=== PATIENT | male | born 1975 | race Caucasian/White ===

== ENCOUNTER → 2018-05-24 10:30 | Outpatient (CLI) | payer OTHER, SELFPAY ==
[2018-05-24 14:07] LABS: Alanine Aminotransferase 27 U/L (12-78); Albumin Level 3.5 gm/dL (3.4-5.0); Albumin/Globulin Ratio 0.9 (1.1-1.8); Alkaline Phosphatase 91 U/L (46-116); Anion Gap 9.8 mEq/L (5-15); Aspartate Amino Transferase 15 U/L (15-37); Bilirubin,Total 0.2 mg/dL (0.2-1.0); Blood Urea Nitrogen 12 mg/dL (7-18); Carbon Dioxide 29 mmol/L (21.0-32.0); Chloride 105 mmol/L (98-107); Chol/HDL Ratio 4.9 (1-3.5); Cholesterol 152 mg/dL (140-200); Creatinine,Serum 0.95 mg/dL (0.70-1.30); Estimated Glomerular Filt Rate 86 ml/min (>60); GFR (African American) 104 ML/MIN (>60); Globulin 3.8 gm/dl (1.3-3.2); Glucose 128 mg/dL (74-106); HDL Cholesterol 31 mg/dL (27-67); LDL Cholesterol 79 mg/dL (0-130); Potassium 3.8 mmoL/L (3.5-5.1); Sodium 140 mmol/L (136-145); T4 (Thyroxine) 8.5 ug/dl (4.7-13.3); Thyroid Stimulating Hormone 1.76 uIU/ml (0.358-3.740); Total Protein,Serum 7.3 gm/dL (6.4-8.2); Triglycerides 210 mg/dL (30-200); VLDL Cholesterol 42 mg/dL (0-40)
[2018-05-24 14:38] LABS: Basophils % 0.6 % (0.1-2.0); Eosinophils # 0.2 K/mm3 (0.0-0.4); Eosinophils % 2.4 % (0.1-12.0); Hematocrit 49.6 % (42.0-52.0); Lymphocytes # 2.3 K/mm3 (0.7-4.5); Lymphocytes % 32.9 K/mm3 (10-50); Mean Corpuscular HGB Conc 32.2 g/dL (31.8-35.4); Mean Corpuscular Hemoglobin 30.7 pg (27.0-31.2); Mean Corpuscular Volume 95.4 fl (80-94); Monocytes # 0.5 K/mm3 (0.1-1.0); Monocytes % 6.9 % (1.7-9.3); Neutrophils % 57.2 % (37.0-80.0); Platelet Count 240 K/mm3 (142-424); Red Cell Distribution Width 13.7 % (11.5-17.5)
[2018-05-27 06:15] LABS: PSA, Free 0.19 ng/mL; Prostate Specific Ag 0.7 ng/mL (0.0-4.0); Vitamin D 25 Hydroxy 31.1 ng/mL (30.0-100.0)
== END ==
PROVIDERS: Visit Provider Nurse Practitioner Family
DX: R05 Cough (principal); R53.83 Other fatigue; Z76.89 Persons encountering health services in other specified circumstances
CPT/HCPCS: 80053; 80061; 82652; 84153; 84154; 84436; 84443; 85025

== ENCOUNTER 2018-09-30 09:40 | Outpatient (RCR) | payer SELFPAY | END 2018-11-06 08:52 | disposition home or self-care (01) | LOC: PT 09:40 | DX: I21.3 ST elevation (STEMI) myocardial infarction of unspecified site (principal) | CPT/HCPCS: 93798 ==

== ENCOUNTER → 2020-11-22 10:50 | Outpatient (CLI) | payer OTHER, SELFPAY ==
--- NOTE | 2020-11-22 10:51 | CA_ITS ---
APPROVED REPORT EXAM: Comprehensive 2D, Doppler, and color-flow Echocardiogram [employer] Travel Counselor: Carolyn Hancock CRT Ht: 6 ft 0 in Wt: 197lbs BSA: 2.12 BP: 132/62 mmHg Indications: Hyperlipidemia, CAD, Stent 2D Dimensions LVOT 2.10 cm (M/F) 1.5-2.5 LVEF (Hope's) 68.00 % LV Volume 81.00 mL LA Volume 29.00 mL LA Volume Index 13.70 mL/m2 (M/F) 16-34 M-Mode Dimensions RVDd 2.30 cm (0.9-2.6) LA Diam 3.10 cm (1.9-4.0) LVDd 5.30 cm (3.5-5.7) Ao Diam 4.30 cm (2.0-3.7) LVDs 3.60 cm (3.5-5.7) AV Cusp 2.10 cm (1.5-2.6) IVSd 1.20 cm (0.6-1.1) PWd 0.80 cm (0.6-1.1) EF (Teich) 59.70% FS 32.10% EDV (Teich) 135.00 mL ESV (Teich) 54.40 mL LV Diastology E/A Ratio 0.70 MED E' 7.80 (< 7 cm/sec) MED A' 8.38 cm/s E'/MED E' Ratio 7.80 (>14) LAT E' 17.00 (<10 cm/sec) LAT A' 12.50 cm/s E/LAT E' Ratio 3.60 (>14) Aortic Valve AoV Peak Lee. 122.00 (50-130 cm/s) AO Peak GR. 6.00 mmHg Mitral Valve MV E Max Lee. 60.70 (40-130 cm/s) MV A Velocity 84.40 (40-130 cm/s) E/A Ratio 0.70 Pulmonary Valve VA End VMAX 69.00 cm/s PA Accel Time 141.00 (>120 msec) Tricuspid Valve TR P. Velocity 188.00 cm/s RAP Estimate 10.00 mmHg RVSP 24.00 mmHg Left Ventricle Left atrium normal size, left ventricle is normal size, there is no concentric left ventricular hypertrophy, visually estimated ejection fraction 55% with no regional wall motion abnormality, diastolic parameters are within normal range. Right Ventricle Right atrium and right ventricle are normal size and contractility. Aortic Valve Aortic valve is minimally thickened and fibrosed, there is no aortic stenosis or aortic insufficiency. Mitral Valve Mitral valve grossly normal, there is trace mitral regurgitation. Tricuspid Valve Tricuspid grossly normal, there is trace tricuspid regurgitation, tricuspid regurgitation jet velocity is inadequate for calculation of the right ventricular systolic pressure. Pulmonic Valve Pulmonic valve is poorly visualized. Great Vessels Aortic root is normal size. Pericardium No significant pericardial effusion noted. Conclusion 1. Normal left ventricular size, preserved left ventricular systolic function, visually estimated ejection fraction 55% with no regional wall motion abnormality, diastolic parameters are within normal range. 2. Trace mitral and tricuspid regurgitation. 3. No significant pericardial effusion noted. Electronically signed by : Franklin Gannon, 11/22/2020 21:55:35
--- NOTE | 2020-11-22 11:38 | NM_ITS ---
APPROVED REPORT Exam: Nuclear Stress Test Indication: CAD, Hx of CT, HTN, High cholesterol, Tobacco use, Family history Patient Location: Outpatient Stress Tech: Pau Apple [place] Tech:Юлия Smith, ARRT, RT (R)(N) Ht: 6 ft 0 in Wt: 197 lbs HR: 72 bpm BP: 156/89 mmHg BSA: 2.12 m2 History: CAD, Hx of CT, HTN, High cholesterol, Tobacco use, Family history Procedure: Patient exercised on Varinder protocol 7:07 minutes and sec, resting heart rate 72 bpm, resting blood pressure 156/89 mmHg, with exercise maximum heart rate achived was 152 bpm which is 88 % of the maximum predicted heart rate and blood pressure was 183/91 mmHg. Test was stopped due to SOA and elevated BP. Patient denied any complaint of chest pain. Patient has Good exercise capacity, achieved 10.1 METs of workload on treadmill, the blood pressure response to exercise was Adequate. Electrocardiogram Resting electrocardiogram showed sinus rhythm, with exercise there is less than 1.[address] segment depression noted from the baseline EKG. The EKG portion of the exercise Myoview is negative for ischemia. Cardiac Stress and Resting SPECT Images: Cardiac Stress and Resting SPECT images were obtained using technetium 99m Myoview 31.8 mCi stress and 9.97 mCi at rest. Gated SPECT for analysis of segmental wall motion and calculation of the ejection fraction also done. Prone images were also obtained. Cardiac stress and resting SPECT images show uniform myocardial activity without segmental perfusion abnormality, computer derived ejection fraction is 50% with no regional wall motion abnormality, right ventricle is normal size and contractility. Conclusion: 1. The EKG portion of the exercise Myoview is negative for ischemia, patient has good exercise capacity achieved 10.1 METs of workload on treadmill, the blood pressure response to exercise was adequate, there was no exercise-induced chest discomfort. 2. No scintigraphic evidence of reversible ischemia seen, computer derived ejection fraction is 50% with no regional wall motion abnormality, right ventricle is normal size and contractility. 3. Normal exercise Myoview study. Electronically signed by : Franklin Gannon, 11/22/2020 22:16:47
--- NOTE | 2020-11-22 13:01 | HMH.ITSHM ---
Current Home Medications as stated by this patient João Louise or volunteer patient representative. []OMEPRAZOLE CLOPIDOGREL BUPROPION ATORVASTATIN ASA
--- NOTE | 2020-11-22 13:20 | CA_ITS ---
APPROVED REPORT Exam: Exercise Treadmill Technologist: Pau Apple, Ht: 6 ft 0 in Wt: 197 lbs BSA: 2.12 m2 HR: 72 bpm BP: 156/89 mmHg Medical History Medications: Aspirin,,,,, Atorvastatin,,,,, BuPROPION,,,,, OmPEprazole,,,,, Stress Test Details Test: Varinder HR Resting HR: 81 bpm Max Heart Rate (APMHR): 173.404810 bpm Max HR Achieved: 152 bpm Target HR (85% APMHR): 147.881190 bpm % of APMHR: 87.86 Recovery HR: 99 bpm BP Resting BP: 156/89 mmHg Max BP: 183/91 mmHg Recovery BP: 151.0/92.0 mmHg ECG Resting ECG: Sinus Rhythm Clinical Exercise duration: 07:07 min Highest Stage Achieved: Exercise capacity: 10.1 METs Stress ECG Conclusion Varinder protocol completed. Met's: 10.1 Exercised 07:07 Max BP: 183/91 Max HR: 152 bpm Stopped due to Shortness of breath and elevated BP. Max HR: 152 bpm % of PM: 88% Max BP: 183/91 MET's 10.1 Test stopped Due To: Shortness of breath/elevated BP, resolved in recovery. Symptoms: No CP, +SOB during peak exercise. Arrythmias/Ectopy: No ectopy. ST-T Changes: less than 1.5mm ST depression. Conclusion: Images to follow Test Summary REST 03:14 0.0 0.0 81 . 156/ 89 . . Stage 1 01:00 10.0 1.7 102 . . . . Stage 1 02:00 10.0 1.7 110 . . . . Stage 1 03:00 10.0 1.7 117 . 160/108 . . Stage 2 01:00 12.0 2.5 123 . . . . Stage 2 02:00 12.0 2.5 135 . . . . Stage 2 03:00 12.0 2.5 140 . 170/110 . . Stage 3 . . . . . . . Cardiolite injected Stage 3 01:00 14.0 3.4 151 . . . . Stage 3 01:07 14.0 3.4 150 . . . Stop exercise at 07:07 RECOVERY 01:00 0.0 0.0 135 . . . . RECOVERY 02:00 0.0 0.0 109 . 163/ 97 . . RECOVERY 03:00 0.0 0.0 105 . 183/ 91 . . RECOVERY 04:00 0.0 0.0 92 . 148/ 90 . . RECOVERY 04:47 0.0 0.0 96 . 151/ 92 . . Electronically signed by : Franklin Gannon, 11/22/2020 22:11:01
== END ==
PROVIDERS: Visit Provider Nurse Practitioner Family
DX: I25.10 Atherosclerotic heart disease of native coronary artery without angina pectoris (principal); E78.5 Hyperlipidemia, unspecified; I10 Essential (primary) hypertension; Z02.4 Encounter for examination for driving license; Z95.5 Presence of coronary angioplasty implant and graft
CPT/HCPCS: 78452; 93017; 93306; A9502

== ENCOUNTER 2021-05-26 17:59 | Emergency (ER) | payer OTHER, SELFPAY ==
[2021-05-26 19:35] VITALS: BP 153/98; PULSE 73; RESP 18; TEMP 36.6; O2SAT 98; BMI 26.8
--- NOTE | 2021-05-26 20:16 | HMH.EDUTC ---
[facility] [place] Impression: Chest wall tenderness Disposition: Home, Self-Care Condition on Discharge: Good Instructions: DI for Rib Contusion Additional Instructions: Drink plenty of fluids. Take tylenol or ibuprofen for pain or fever. Follow up with your regular doctor. GO TO THE ER FOR ANY WORSENING SYMPTOMS Referrals: Provider,Referral, [Primary Care Provider] - Time of Disposition: 20:27 Medical Decision Making - Medical Records Medical records reviewed: No: I reviewed the patient's medical records. - Emilio Inquiry Pt receiving controlled substance: No Vital Signs: 05/26/21 19:35 Temperature 98 F Temperature Source Oral Pulse Rate [Left] 73 Respiratory Rate 18 Blood Pressure [Right Arm] 153/98 H Blood Pressure Mean [Right Arm] 116 02 Sat by Pulse Oximetry 98 [facility] [place] - General Stated complaint: chest sore x 3 days Time Seen by Provider: 05/26/21 20:16 Mode of Arrival: Ambulatory Source of Information: Patient Limitations: No Limitations Description of Symptoms (Recalled from Triage Doc. by RN): pt c/o L chest soreness. pt states it is worse when he inspires. pt had a runny nose a few days ago but no other symptoms. no injury that pt is aware of. pt denies soa. HEENT Symptoms (Recalled from RN notes): No Resp Symptoms (Recalled from RN notes): No Skin Symptoms (Recalled from RN notes): No MS Symptoms (Recalled from RN notes): No Functional Status (Recalled from RN notes): na - History of Present Illness Provider Complaint: He has been having left sided chest tenderness for the past 2 to 3 days. He denies any known injury, but he did chop wood around 2 days before his symptoms began. He states that he can press on his chest wall and reproduce his symptoms. He also states that moving his left arm and shoulder certain ways reproduces the symptoms. He denies any shortness of breath, nausea or other symptoms. He does have a cardiac history. He has had an MA around 2 years ago. - Related Data Home Medications Medication Instructions Recorded Confirmed aspirin 81 mg tablet,delayed 81 mg PO DAILY 11/08/20 11/24/20 release atorvastatin 80 mg tablet 80 mg PO HS tab 11/08/20 11/24/20 bupropion HCl 150 mg 24 hr tablet, 150 mg PO DAILY tab 11/08/20 11/24/20 extended release clopidogrel 75 mg tablet 75 mg PO DAILY tab 11/08/20 11/24/20 omeprazole 40 mg capsule,delayed 40 mg PO DAILY cap 11/08/20 11/24/20 release Allergies Allergy/AdvReac Type Severity Reaction Status Date / Time No Known Allergies Allergy Verified 11/24/20 09:34 - Worker's Comp Is this a Worker's Comp case?: No H History - Hepatitis A Screen Drug use history?: No High risk sexual behaviors?: No History of sexually transmitted infection?: No Currently employed?: No Childcare worker?: No Do you have indoor plumbing?: Yes Do you have electricity?: Yes Attestation statement:: This patient has been screened for Hepatitis A risk factors. I have reviewed the patient's past medical history: Yes Medical History: Reports:: Coronary Artery Disease, Hyperlipidemia, Myocardial Infarction Other Surgeries: Yes: Cardiac Catheterization, Coronary Stent Amputation: No Fractures: Yes Comment: Finger, Jaw - Social History Smoking Status: Current every day smoker Tobacco Type: cigarettes # Packs/Day (cigarettes): 1 Alcohol Intake: never Alcohol Intake Frequency:: a few times a week Substance Use Type: denies use Occupational Status: employed Housing: house Household Members: spouse Family Hx:: Hypertension ROS Obtained: Yes All systems reviewed & no additional complaints - Constitutional Constitutional: Denies chills, Denies fever(s) - Eyes Eyes: Denies eye discharge - ENT Ears, Nose, Mouth, and Throat: Denies dizziness, Denies otalgia, Denies sore throat - Cardiovascular Cardiovascular: Denies chest pain - Respiratory Respiratory: Denies chest congestion, Denies
[2021-05-26 20:29] VITALS: BP 153/98; PULSE 73; RESP 16; TEMP 36.6
== END 2021-05-26 20:31 | disposition home or self-care (01) ==
PROVIDERS: Emergency Provider Nurse Practitioner Family
DX: R07.89 Other chest pain (principal); I25.10 Atherosclerotic heart disease of native coronary artery without angina pectoris; I25.2 Old myocardial infarction; E78.5 Hyperlipidemia, unspecified; F17.210 Nicotine dependence, cigarettes, uncomplicated
CPT/HCPCS: 99202; G0463

== ENCOUNTER 2021-11-19 17:17 | Emergency (ER) | payer OTHER, SELFPAY ==
[2021-11-19 17:59] VITALS: BP 154/82; PULSE 92; RESP 18; TEMP 36.9; O2SAT 98; BMI 26.0
--- NOTE | 2021-11-19 18:00 | HMH.EDUTC ---
[facility] [place] Impression: Acute bronchitis Qualifiers: Bronchitis organism: unspecified organism Qualified Code(s): J20.9 - Acute bronchitis, unspecified Disposition: Home, Self-Care Condition on Discharge: Good Instructions: Acute Bronchitis, DI for Acute Bronchitis Additional Instructions: Drink plenty of fluids. Take tylenol or ibuprofen for pain or fever. Take the medications as directed. Follow up with your regular doctor. GO TO THE ER FOR ANY WORSENING SYMPTOMS The cough medication (promethazine dm) will make you drowsy, so don't drive or operate heavy machinery after taking it. Prescriptions: Promethazine/Dextromethorphan [Promethazine-Dm Syrup] 5 ml PO Q6HP PRN #240 ml PRN Reason: Cough Transmission Status: Received by [facility] Amoxicillin/Potassium Clav [Amox-Clav 875-125 mg Tablet] 1 tab PO BID #20 tab Transmission Status: Received by [facility] methylPREDNISolone [Medrol] 4 mg PO DIRECTED 6 Days #21 packet Transmission Status: Received by [facility] guaiFENesin [Mucinex 600mg tablet] 1 - 2 tab PO BIDP PRN #30 tab PRN Reason: Congestion Transmission Status: Received by [facility] Referrals: Provider,Referral, [Primary Care Provider] - Time of Disposition: 18:59 Medical Decision Making - Medical Records Medical records reviewed: No: I reviewed the patient's medical records. - Emilio Inquiry Pt receiving controlled substance: No Vital Signs: 11/19/21 17:59 11/19/21 19:12 Temperature 98.5 F 98.5 F Temperature Source Oral Pulse Rate 92 H Pulse Rate [Left] 92 H Respiratory Rate 18 18 Blood Pressure 154/82 H Blood Pressure [Right Arm] 154/82 H Blood Pressure Mean [Right Arm] 106 02 Sat by Pulse Oximetry 98 [facility] [place] - General Stated complaint: soa, cough Time Seen by Provider: 11/19/21 18:00 - History of Present Illness Provider Complaint: He c/o having a cough and chest congestion since yesterday. He denies any chest pain. He denies shortness of breath. He denies any fever or chills. - Related Data Home Medications Medication Instructions Recorded Confirmed aspirin 81 mg tablet,delayed 81 mg PO DAILY 11/08/20 11/24/20 release atorvastatin 80 mg tablet 80 mg PO HS tab 11/08/20 11/24/20 bupropion HCl 150 mg 24 hr tablet, 150 mg PO DAILY tab 11/08/20 11/24/20 extended release clopidogrel 75 mg tablet 75 mg PO DAILY tab 11/08/20 11/24/20 omeprazole 40 mg capsule,delayed 40 mg PO DAILY cap 11/08/20 11/24/20 release Previous Rx's Medication Instructions Recorded Amoxicillin/Potassium Clav 1 tab PO BID #20 tab 11/19/21 [Amox-Clav 875-125 mg Tablet] Promethazine/Dextromethorphan 5 ml PO Q6HP PRN #240 ml 11/19/21 [Promethazine-Dm Syrup] guaiFENesin [Mucinex 600mg tablet] 1 - 2 tab PO BIDP PRN #30 tab 11/19/21 methylPREDNISolone [Medrol] 4 mg PO DIRECTED 6 Days #21 11/19/21 packet Allergies Allergy/AdvReac Type Severity Reaction Status Date / Time No Known Allergies Allergy Verified 11/24/20 09:34 [facility] History - Hepatitis A Screen Attestation statement:: This patient has been screened for Hepatitis A risk factors. I have reviewed the patient's past medical history: Yes Medical History: Reports:: Coronary Artery Disease, Hyperlipidemia, Myocardial Infarction Other Surgeries: Yes: Cardiac Catheterization, Coronary Stent Amputation: No Fractures: Yes Comment: Finger, Jaw - Social History Smoking Status: Current every day smoker Tobacco Type: cigarettes # Packs/Day (cigarettes): 1 Alcohol Intake: never Alcohol Intake Frequency:: a few times a week Substance Use Type: denies use Occupational Status: employed Housing: house Household Members: spouse Family Hx:: Hypertension ROS Obtained: Yes All systems reviewed & no additional complaints - Constitutional Constitutional: Reports system reviewed and no additional complaints, except as docu - Eyes
[2021-11-19 19:12] VITALS: BP 154/82; PULSE 92; RESP 18; TEMP 36.9
== END 2021-11-19 19:14 | disposition home or self-care (01) ==
PROVIDERS: Emergency Provider Nurse Practitioner Family
DX: J20.9 Acute bronchitis, unspecified; I25.10 Atherosclerotic heart disease of native coronary artery without angina pectoris; I25.2 Old myocardial infarction; E78.5 Hyperlipidemia, unspecified; F17.210 Nicotine dependence, cigarettes, uncomplicated; Z79.02 Long term (current) use of antithrombotics/antiplatelets; Z79.52 Long term (current) use of systemic steroids; Z79.82 Long term (current) use of aspirin; Z79.899 Other long term (current) drug therapy; Z95.5 Presence of coronary angioplasty implant and graft
CPT/HCPCS: 99213; G0463

== ENCOUNTER → 2022-10-13 07:40 | Outpatient (CLI) | payer OTHER, SELFPAY | LOC: RAD 07:40 | PROVIDERS: PCP Family Medicine; Visit Provider Physician Assistant | DX: I25.10 Atherosclerotic heart disease of native coronary artery without angina pectoris (principal); I10 Essential (primary) hypertension; E78.2 Mixed hyperlipidemia; Z72.0 Tobacco use; Z95.5 Presence of coronary angioplasty implant and graft | CPT/HCPCS: 78452; 93017; 93306; A9502 ==

== ENCOUNTER 2024-10-21 06:52 | Outpatient (CLI) | payer OTHER, SELFPAY ==
--- NOTE | 2024-10-21 | CA_ITS ---
APPROVED REPORT Exam: Pharmacologic Technologist: Melissa Upton Ht: 6 ft 1 in Wt: 204 lbs BSA: 2.17 m2 HR: 64 bpm BP: 147/92 mmHg Stress Test Details Test: Lexiscan HR Resting HR: 64 bpm Max Heart Rate (APMHR): 169.667367 bpm Max HR Achieved: 96 bpm Target HR (85% APMHR): 143.645103 bpm % of APMHR: 56.80 Recovery HR: 85 bpm BP Resting BP: 147.0/92.0 mmHg Max BP: 147.0/92.0 mmHg Recovery BP: 139.0/87.0 mmHg ECG Resting ECG: Sinus rhythm Stress ECG Conclusion Symptoms: None Arrhythmias/Ectopy: - ST-T Changes: Less than [address] depression. Concluison: EKG unremarkable due to Lexiscan infusion. Electronically signed by : Tianna Mcdowell MD 10/26/2024 20:45:28
--- NOTE | 2024-10-21 06:59 | NM_ITS ---
APPROVED REPORT Exam: Nuclear Stress Test Indication: CAD, Hx of MA, HTN, High cholesterol, Tobacco use Patient Location: Outpatient Stress Tech: Melissa Upton [place] Tech:Юлия Smith, ARRT, RT (R)(N) Ht: 6 ft 0 in Wt: 204 lbs HR: 75 bpm BP: 147/92 mmHg BSA: 2.15 m2 TID: 1.31 History: CAD, Hx of MA, HTN, High cholesterol, Tobacco use Procedure: Patient received 0.4 mg of intravenous Lexiscan, resting heart rate 75 bpm, resting blood pressure 147/92 mmHg, with Lexiscan maximum heart rate achieved was 100 bpm which is % of the maximum predicted heart rate and blood pressure was 139/87 mmHg. With Lexiscan, patient denied any complaint of chest pain. Cardiac Stress and Resting SPECT Images: Cardiac Stress and Resting SPECT images were obtained using technetium 99m Myoview 31.6 mCi stress and 10.46 mCi at rest. Resting and stress imaging in supine and prone positions demonstrate a medium sized, moderate, partially reversible perfusion defect in the inferior and inferior septal LV harkins, as well as in the LV apical region. There is increase in transient ischemic dilatation ratio (TID 1.31), suggestive of possible multivessel disease or balanced ischemia. Gated imaging demonstrates normal global LV systolic function. There is mild hypokinesis of the apical LV wall. LVEF is calculated at 55%. Conclusion: Medium sized, moderate, partially reversible perfusion defect in the inferior and inferior septal LV harkins, as well as in the LV apical region. Findings are suggestive of partial reversible ischemia. There is increase in transient ischemic dilatation ratio (TID 1.31), suggestive of possible multivessel disease or balanced ischemia. Gated imaging demonstrates normal global LV systolic function. There is mild hypokinesis of the apical LV wall. LVEF is calculated at 55%. Electronically signed by : Tianna Mcdowell MD 10/21/2024 10:46:49
--- NOTE | 2024-10-21 08:55 | CA_ITS ---
APPROVED REPORT EXAM: Comprehensive 2D, Doppler, and color-flow Echocardiogram Drug Worker: MICHELLE Tapia, RVS Ht: 6 ft 1 in Wt: 204lbs BSA: 2.17 BP: 120/80 mmHg Indications: CAD, Stent, Smoker, HTN, HLD 2D Dimensions IVSd 0.70 cm M: 0.6-1.2 LVEF (Visual) 65.00 % PWd 0.80 cm M: 0.6 - 1.2 LV Volume 35.30 mL M: 62 - 150 LVDd 5.20 cm M: 4.2 - 5.9 LV Volume Index 16.3 mL/m2 M: 34 - 74 LVDs 3.66 cm M: 2.5 - 4.0 LA Volume Index 15.90 mL/m2 (M/F) 16-34 Aortic Root 3.70 cm M: 3.1 - 3.7 EF AP4 55.00 % Left Atrium 3.70 cm M: 3.0 - 4.0 RVID Base (AP4) 2.90 cm (M/F) 2.5-4.1 LVOT 2.10 cm (M/F) 1.5-2.5 RVOT (PLAX) 2.80 cm (M/F) 2.1-3.5 M-Mode Dimensions RVDd 2.80 cm (0.9-2.6) LVDd 5.20 cm (3.5-5.7) LVDs 3.66 cm (3.5-5.7) IVSd 0.70 cm (0.6-1.1) PWd 0.80 cm (0.6-1.1) EF (Teich) 60.00% FS 35.00% LV Diastology E Decel Time 0247 (160-240 msec) Left Ventricle The left ventricle is normal size. The left ventricular systolic function is normal. The left ventricular ejection fraction is within the normal range. There is increased LV wall thickness. There is normal LV segmental wall motion. The left ventricular diastolic function is normal. LVEF is 55%. Right Ventricle Right ventricle is mildly dilated. The right ventricular systolic function is normal. Atria The left atrium size is normal. The right atrium size is normal. There is no Doppler evidence of interatrial shunt. Aortic valve is mildly thickened. Aortic Valve There is no aortic valvular stenosis. No aortic regurgitation is present. Mitral Valve The mitral valve is normal in structure. No evidence of mitral valve stenosis. There is no mitral valve regurgitation noted. Tricuspid Valve Tricuspid valve is grossly normal in structure and function. Trace tricuspid regurgitation. There is insufficient TR jet to estimate RVSP. Pulmonic Valve The pulmonary valve is normal in structure. Trace pulmonic regurgitation. Great Vessels The aortic root is normal in size. IVC is normal in size and collapses >50% with inspiration. Pericardium There is no pericardial effusion. Other Information Study Quality: Fair Conclusion Normal biventricular systolic function. Mild RV dilation. No significant valvular stenosis or regurgitation. Electronically signed by : Tianna Mcdowell MD 10/23/2024 15:23:33
[2024-10-21] MEDS: REGADENOSON 0.4MG/5ML SYRINGE 0.4 MG IV (08:59)
[2024-10-21] MEDS: SODIUM CHLORIDE 0.9% 10ML SYR (RAD ONLY) 10 ML IV ×2 (08:59→09:00)
[2024-10-21] MEDS: ISOTOPE MYOVIEW (PER STUDY) 1 DOSE IV (09:00)
== END 2024-10-21 23:59 | disposition home or self-care (01) ==
LOC: RAD 06:53
PROVIDERS: Visit Provider Nurse Practitioner Family
DX: I25.10 Atherosclerotic heart disease of native coronary artery without angina pectoris (principal); I10 Essential (primary) hypertension; Z72.0 Tobacco use; E78.2 Mixed hyperlipidemia; Z95.5 Presence of coronary angioplasty implant and graft
CPT/HCPCS: 78452; 93017; 93018; 93306; A9502; J2785

== ENCOUNTER 2024-10-31 08:28 | Day surgery (SDC) | payer OTHER, SELFPAY ==
[2024-10-31] VITALS (11 sets, daily range): BP systolic 87–116; BP diastolic 51–70; PULSE 55–86; RESP 16–20; O2SAT 92–97; BMI 27.0
--- NOTE | 2024-10-31 07:04 | IR_ITS ---
APPROVED REPORT Patient Location: Outpatient PROCEDURES Left heart catheterization Left ventriculogram Selective coronary angiogram Intravascular ultrasound of the LAD INDICATION Abnormal Myoview, Informed consent was obtained prior to the procedure. COMPLICATIONS none Estimated Blood Loss: less than 10ml TECHNIQUE One percent lidocaine used to anesthetize the right anterior aspect of the wrist. The right radial artery was accessed via the Seldinger technique. A 6 Panamanian sheath was placed in the right radial artery. 2.5 mg of Verapamil, 800 mcg of nitroglycerin, 1mg Lidocaine and 5000 U Heparin were given through the arterial sheath. The 6 Panamanian JL 3 guide catheter was also used to perform left heart catheterization, left ventriculogram and selective coronary angiogram. At the end the diagnostic angiogram therapeutic heparin was administered giving a therapeutic ACT and the guide catheters placed in left main artery followed by Choice PT export wire down the LAD. Intravascular ultrasound probe was advanced and the proximal LAD was interrogated which produced an MLA of 4.6 mm???. This did not meet hemodynamic significance or anatomic significance therefore the apparatus was removed the sheath was removed and hemostasis was achieved using TR banding patient was transferred to the postop putting in stable condition ANGIOGRAPHIC RESULTS The left main artery Normal The left anterior descending artery There is a proximal eccentric 40 to 50% stenosis The circumflex artery Is nondominant and has a stent in the proximal segment which is widely patent free of in-stent restenosis with excellent proximal distal transitioning The right coronary artery Is dominant and has a proximal 30% stenosis in the mid vessel with a distal concentric 50% stenosis The GIRARD ventriculogram reveals Normal 65% The left ventricular end-diastolic pressure 25 mmHg IMPRESSION Patent stent in the proximal circumflex artery Moderate disease in the proximal LAD which is nonischemic Moderate disease in the mid to distal dominant right coronary Normal ejection fraction Elevated LVEDP which is likely etiology for the transient ischemic dilatation on the stress test PLAN 1. Medical management for coronary artery disease 2. LDL less than 55 achieved with high intensity statin 3. Medical management for diastolic dysfunction 4. Weight loss exercise 5. Avoidance of tobacco products 6. There is no coronary artery disease reason for patient not to receive a CDL Electronically signed by : Jose E Augustin MD 10/31/2024 12:40:00
[2024-10-31 08:58] LABS: Basophils # 0.1 K/mm3 (0-0.2); Basophils % 0.6 % (0.1-2.0); Eosinophils # 0.4 K/mm3 (0.0-0.4); Eosinophils % 2.6 % (0.1-12.0); Hemoglobin 15.7 g/dL (14.1-18.0); Lymphocytes # 5.2 K/mm3 (0.7-4.5); Lymphocytes % 38.6 % (10-50); Mean Corpuscular HGB Conc 34.1 g/dL (31.8-35.4); Mean Corpuscular Hemoglobin 32.2 pg (27.0-31.2); Mean Corpuscular Volume 94.5 fl (80-94); Mean Platelet Volume 9.7 fl (7.4-10.4); Monocytes # 1.2 K/mm3 (0.1-1.0); Monocytes % 8.6 % (1.7-9.3); Neutrophils # 6.6 K/mm3 (1.8-7.8); Neutrophils % 49.2 % (37.0-80.0); Platelet Count 252 K/mm3 (142-424); Red Blood Count 4.87 M/mm3 (4.60-6.20); Red Cell Distribution Width 13.3 % (11.5-17.5); White Blood Count 13.4 K/mm3 (4.8-10.8)
[2024-10-31 09:13] LABS: Blood Urea Nitrogen 20 mg/dl (9-20); Calcium 9.6 mg/dl (8.4-10.2); Carbon Dioxide 26 mmol/L (22.0-30.0); Chloride 105 mmol/L (98-107); Creatinine Clearance Estimated 115 mL/min (50-200); Estimated Glomerular Filt Rate 79 ml/min (>60); GFR (African American) 95 ML/MIN (>60); Glucose 135 mg/dl (74-100); Sodium 137 mmol/L (136-145)
[2024-10-31] MEDS: VERAPAMIL 2.5MG/ML 2ML VIAL 2.5 MG IV (12:08)
[2024-10-31] MEDS: HEPARIN 1,000 UNITS/500ML NS (CATH LAB) 3000 UNIT IV (12:09)
[2024-10-31] MEDS: diphenhydrAMINE 50MG/ML VIAL 50 MG IV (12:09)
[2024-10-31] MEDS: 0.9 % SODIUM CHLORIDE 500 ML 25 ML IV (12:09)
[2024-10-31] MEDS: LIDOCAINE 1% 10ML MDV 20 ML IJ (12:09)
[2024-10-31] MEDS: HEPARIN 1,000 UNITS/ML 10ML VIAL (CATH LAB) 10000 UNIT IV (12:09)
[2024-10-31] MEDS: NITROGLYCERIN 800MCG/8ML SYR (CATH LAB) 800 MCG IA (12:10)
[2024-10-31] MEDS: MIDAZOLAM HCL 1MG/ML 5ML VIAL 1 MG IV (12:33)
[2024-10-31] MEDS: FENTANYL 100MCG/2ML VIAL 50 MCG IV (12:34)
[2024-10-31] MEDS: IOPAMIDOL-370 (76%);100ML BOTTLE 100 ML IV (13:16)
[2024-10-31 13:17] LABS: CATHL Activated Clotting Time 330 SEC (74-125)
[2024-10-31] MEDS: NICOTINE 21MG/24HR PATCH 21 MG TD (14:01)
== END 2024-10-31 15:18 | disposition home or self-care (01) ==
LOC: CATHLAB 08:30
PROVIDERS: Visit Provider Internal Medicine
DX: I25.10 Atherosclerotic heart disease of native coronary artery without angina pectoris (principal); R94.39 Abnormal result of other cardiovascular function study; I10 Essential (primary) hypertension; F17.210 Nicotine dependence, cigarettes, uncomplicated; I25.2 Old myocardial infarction; E78.2 Mixed hyperlipidemia; Z79.899 Other long term (current) drug therapy; Z79.82 Long term (current) use of aspirin; Z95.5 Presence of coronary angioplasty implant and graft; Z71.6 Tobacco abuse counseling
CPT/HCPCS: 80048; 85025; 85347; 92978; 93458; 99152; C1725; C1769; J1200; J1644; J3010; Q9967